=== PATIENT | female | born 1970 | race Caucasian/White ===

== ENCOUNTER 2017-03-15 04:33 | Emergency (ER) | payer MEDICAID, OTHER ==
[2017-03-15 04:41] VITALS: RESP 16; TEMP 99
[2017-03-15] MEDS ORDERED: ONDANSETRON 4 MG/2 ML VIAL IVP ONE (05:04)
[2017-03-15] MEDS ORDERED: NS 1,000 ML IV ONE ×2 (05:04)
[2017-03-15 05:25] LABS: % IMMATURE GRANULYOCYTES 0.2 % (0.0-1.1); ABSOLUTE IMMATURE GRANULOCYTES 0.01 10^3/uL (0.00-0.10); ADD DIFF? NO; ADD MORPH? NO; ADD SCAN? NO; ATYPICAL LYMPHOCYTE FLAG 0 (0-99); FRAGMENT RBC FLAG 20 (0-99); HEMATOCRIT 33.3 % (38.0-47.0); HEMOGLOBIN 10.2 g/dL (12.6-16.3); LEFT SHIFT FLG 0 (0-99); LIPEMIA HEMOLYSIS FLAG 80 (0-99); MEAN CELL HEMOGLOBIN 23.9 pg (27.9-34.1); MEAN CELL HEMOGLOBIN CONCENTR. 30.6 g/dL (32.4-36.7); MEAN CELL VOLUME 78.2 fL (81.5-99.8); MEAN PLATELET VOLUME 9.8 fL (8.7-11.7); PLATELET CLUMPS FLAG 0 (0-99); PLATELET COUNT 250 10^3/uL (150-400); RED BLOOD CELL COUNT 4.26 10^6/uL (4.18-5.33); RED CELL DISTRIBUTION WIDTH 15.9 % (11.5-15.2)
[2017-03-15 05:35] LABS: ANION GAP 8 mEq/L (8-16); CALCIUM 9.1 mg/dL (8.5-10.4); CARBON DIOXIDE 26 mEq/l (22-31); CHLORIDE 109 mEq/L (97-110); CREATININE 1.1 mg/dL (0.6-1.0); GLOMERULAR FILTRATION RATE 53; GLUCOSE 89 mg/dL (70-100); POTASSIUM 3.9 mEq/L (3.5-5.2); SODIUM 143 mEq/L (134-144)
--- NOTE | 2017-03-15 05:59 | EDPHY ---
H & P Stated Complaint: UTI symptoms; recent UA done, awaiting culture, took levaquin Time Seen by Provider: 03/15/17 04:45 HPI/ROS: HPI The patient presents with symptoms of urinary tract infection which began about 1 week ago. She did receive a steroid infusion as part of a study drug treatment she is receiving for amyloidosis. She has been experiencing nausea, dry heaves, a pressure like sensation in her lower abdomen and has had some mild diarrhea. She was seen by her doctor yesterday at [facility] and had a UA suggestive of urinary tract infection so she has taken 1 dose of Levaquin. Urine culture was sent, however results have not returned yet. She has a neurogenic bladder and has to straight cath and has been doing this recently. She has a history of ESBL UTIs.. REVIEW OF SYSTEMS Constitutional: No fever, no chills. Eyes: No discharge. ENT: No sore throat. Cardiovascular: No chest pain, no palpitations. Respiratory: No cough, no shortness of breath. Gastrointestinal: Positive for abdominal pain, no vomiting. Genitourinary: No hematuria. Musculoskeletal: No back pain. Skin: No rashes. Neurological: No headache. PMHx: Amyloidosis, neurogenic bladder, pots, Sjogren's syndrome Soc Hx: Housed PHYSICAL General Appearance: Alert, no distress Eyes: Pupils equal and round no pallor or injection ENT, Mouth: Mucous membranes dry Respiratory: There are no retractions, lungs are clear to auscultation Cardiovascular: Regular rate and rhythm Gastrointestinal: Abdomen is soft and non-tender, no masses, bowel sounds normal, no CVA tenderness, feeding tube in place Neurological: A&O, moves all extremities Skin: Warm and dry, no rashes Musculoskeletal: Neck is supple non tender Extremities: symmetrical, full range of motion Psychiatric: Patient is oriented X 3, there is no agitation Source: Patient Exam Limitations: No limitations - Personal History LMP (Females 10-55): 1-7 Days Ago Current Tetanus/Diphtheria Vaccine: Yes - Medical/Surgical History Hx Asthma: No Hx Chronic Respiratory Disease: No Hx Diabetes: No Hx Cardiac Disease: No Hx Renal Disease: No Hx Cirrhosis: No Hx Alcoholism: No Hx HIV/AIDS: No Hx Splenectomy or Spleen Trauma: No Other PMH: PMHx: Neurogenic bladder, Sjogran's disease, autonomic neuropathy, POTS. PSHx: eye surgeries, feeding tube, hernia repair x 2 - Social History Smoking Status: Never smoked Constitutional: Initial Vital Signs Temperature (C) 37.2 C 03/15/17 04:37 Heart Rate 78 03/15/17 04:37 Respiratory Rate 16 03/15/17 04:37 Blood Pressure 112/84 H 03/15/17 04:37 O2 Sat (%) 99 03/15/17 04:37 O2 Delivery Mode Room Air Allergies/Adverse Reactions: No Known Allergies Allergy (Verified 08/25/14 14:25) Home Medications: Medication Instructions Recorded Benzonatate [Tessalon Pearles] 200 mg PO TID PRN 06/14/14 Cevimeline HCl [Evoxac] 30 mg PO TID 06/14/14 Cholecalciferol (Vitamin D3) 5,000 unit PO DAILY 06/14/14 [Vitamin D3] Dextran 70/Hypromellose [Tears 1 - 2 drops OP PRN PRN 06/14/14 Naturale-II Eye Drops] Herbals/Supplements -Info Only 1 ea PO DAILY 06/14/14 Hydroxychloroquine Sulfate 200 mg PO DAILY 06/14/14 [Plaquenil 200 mg (*)] [place]-3 Fatty Acids [Fish Oil 1000 1,000 mg PO DAILY 06/14/14 mg (*)] Pantoprazole Sodium [Protonix 40mg 40 mg PO DAILY 06/14/14 (*)] Solifenacin Succinate [Vesicare] 10 mg PO DAILY 06/14/14 Acetaminophen [Tylenol 325mg (*)] 650 mg PO Q4 PRN #0 tab 06/16/14 Ertapenem [INVanz] 1 gm IV DAILY #0 vial 06/16/14 Ferrous Sulfate [Iron] 325 mg PO DAILY #0 capsule.sa 06/16/14 Ondansetron Odt [Zofran Odt 4 mg 4 mg PO Q4 PRN #20 tab 06/16/14 (*)] Ondansetron Odt [Zofran Odt] 4 mg PO Q4PRN PRN #10 tab 08/25/14 Medical Decision Making Differential Diagnosis: This is a 46-year-old female with complex past medical history including amyloidosis with neurogenic bladder, requiring straight catheterization, and frequent urinary tract infections with history of ESBL. She presents today with symptoms of a urinary tract infection which have been associated with nausea and lack of appetite. She has already been seen by her doctor at [facility] and has initiated antibiotic treatment. Differential diagnosis includes cystitis, pyelonephritis, dehydration, renal failure. In the emergency department, IV line was established and the patient was given 2 L of IV fluid for presumed hypovolemia due to her nausea and anorexia. Labs were checked and were relatively unremarkable. We did not check UA or culture today given that these were just done yesterday and patient has results with her. - Data Points Laboratory Results: Laboratory Results 03/15/17 05:17 03/15/17 05:17 03/15/17 03/15/17 05: 05:17 WBC 5.40 10^3/uL 10^3/uL (3.80-9.50) RBC 4.26 10^6/uL 10^6/uL (4.18-5.33) Hgb 10.2 g/dL L g/dL (12.6-16.3) Hct 33.3 % L % (38.0-47.0) MCV 78.2 fL L fL (81.5-99.8) MCH 23.9 pg L pg (27.9-34.1) MCHC 30.6 g/dL L g/dL (32.4-36.7) RDW 15.9 % H % (11.5-15.2) Plt Count 250 10^3/uL 10^3/uL (150-400) MPV 9.8 fL fL (8.7-11.7) Neut % (Auto) 58.8 % % (39.3-74.2) Lymph % (Auto) 30.0 % % (15.0-45.0) [place] % (Auto) 8.7 % % (4.5-13.0) Eos % (Auto) 1.7 % % (0.6-7.6) Baso % (Auto) 0.6 % % (0.3-1.7) Nucleat RBC Rel Count 0.0 % % (0.0-0.2) Absolute Neuts (auto) 3.18 10^3/uL 10^3/uL (1.70-6.50) Absolute Lymphs (auto) 1.62 10^3/uL 10^3/uL (1.00-3.00) Absolute Monos (auto) 0.47 10^3/uL 10^3/uL (0.30-0.80) Absolute Eos (auto) 0.09 10^3/uL 10^3/uL (0.03-0.40) Absolute Basos (auto) 0.03 10^3/uL 10^3/uL (0.02-0.10) Absolute Nucleated RBC 0.00 10^3/uL 10^3/uL (0-0.01) Immature Gran % 0.2 % % (0.0-1.1) Immature Gran # 0.01 10^3/uL 10^3/uL (0.00-0.10) Sodium 143 mEq/L mEq/L (134-144) Potassium 3.9 mEq/L mEq/L (3.5-5.2) Chloride 109 mEq/L mEq/L (97-110) Carbon Dioxide 26 mEq/l mEq/l (22-31) Anion Gap 8 mEq/L mEq/L (8-16) BUN 25 mg/dL H mg/dL (7-23) Creatinine 1.1 mg/dL H mg/dL (0.6-1.0) Estimated GFR 53 Glucose 89 mg/dL mg/dL (70-100) Calcium 9.1 mg/dL mg/dL (8.5-10.4) Medications Given: Discontinued Medications Sodium Chloride (Ns) 1,000 mls @ 0 mls/hr IV ONCE ONE; Wide Open PRN Reason: Protocol Stop: 03/15/17 05:05 Last Admin: 03/15/17 05:33 Dose: 1,000 mls Sodium Chloride (Ns) 1,000 mls @ 0 mls/hr IV ONCE ONE; Wide Open PRN Reason: Protocol Stop: 03/15/17 05:05 Last Admin: 03/15/17 06:05 Dose: 1,000 mls Ondansetron HCl (Zofran) 4 mg IVP EDNOW ONE Stop: 03/15/17 05:05 Last Admin: 03/15/17 05:33 Dose: 4 mg Departure - Departure Disposition: Home, Routine, Self-Care Clinical Impression: UTI (lower urinary tract infection), Dehydration Condition: Good Instructions: Urinary Tract Infection in Women (ED) Additional Instructions: Please return to the emergency room if your worse in any way. Otherwise you should follow up with your regular treating doctor. Referrals: Ariana Junior MD [Primary Care Provider] - As per Instructions
[2017-03-15 07:00] VITALS: BP 108/78; PULSE 68; O2SAT 96
== END 2017-03-15 07:09 | disposition home or self-care (01) ==
DX: N39.0 Urinary tract infection, site not specified (principal); E86.0 Dehydration
CPT/HCPCS: 96374; J2405

== ENCOUNTER 2017-05-20 21:07 | Emergency (ER) | payer MEDICAID ==
--- NOTE | 2017-05-20 21:40 | EDPHY ---
General - History Smoking Status: Never smoked Narrative: CHIEF COMPLAINT: Suicidal ideation, depression HISTORY OF PRESENT ILLNESS: Patient presents with reports of suicidal ideation that started Sunday. Her close friend, Nawaf Nuñez, is with her. The friend reports that the patient has been suicidal since Sunday. The patient agrees to this. She says she has had increasing thoughts of self-harm on Sunday. She cannot control them. She does not have a specific plan. She is not have any intent but is concerned as the thoughts have been increasingly worsened her. She has extensive medical history and comorbidities, most importantly to her is amyloidosis with secondary complications of this. She has been on a study drug , Patisiran, for many months. The reports that this may be causing her symptoms. She has had extensive stress in her life from the medical problems and outside of her medical problems as well. The friend with her reports that she is concerned about her well-being. She brought her here on her own free will. No other associated complaints. No modifying factors for this. She denies any attempted self-harm. She denies previous attempt or diagnosis of depression. PSYCHIATRIC DIAGNOSES: None PRIOR PSYCHIATRIC EVALUATIONS: None M1/DETAINER: Dr. Suresh, 05/20/17 at 21:30 REVIEW OF SYSTEMS: Ten systems reviewed and are negative unless otherwise noted in the HPI EXAMINATION General Appearance: Alert, no distress, tearful Head: normocephalic, atraumatic Eyes: Pupils equal and round, no conjunctival pallor or injection ENT, Mouth: Mucous membranes moist Neck: Normal inspection, supple, non-tender Respiratory: Lungs are clear to auscultation. No wheeze, rhonchi or crackles Cardiovascular: Regular rate and rhythm. No murmur Gastrointestinal: Abdomen is soft and nontender Back: non-tender, no bony abnormalities Neurological: A&O, nonfocal Skin: Warm and dry, no rash Extremities: Nontender, no pedal edema Psychiatric: Depressed mood. Tearful. Admits suicidal ideation. Denies a specific plan. Denies intent. No previous suicide attempt. No access to weapons. No substance abuse. DIFFERENTIAL DIAGNOSES: Including but not limited to suicidal ideation, depression, stress reaction, MDM: 9:40 p.m. Suicidal ideation without any specific plan or intent. Patient does have multiple medical comorbidities and multiple social stressors. Her friend is bedside with her. She is tearful but consolable. I have placed her on an M1 hold. She is aware of this. She agrees to proceed with medical clearance and mental health evaluation. 11:20 p.m. Laboratory studies are all negative. She is cleared for evaluation. I re- evaluated the patient. She is in no acute distress. I informed her that the laboratory studies are negative that she has been cleared for mental evaluation. 12:30 a.m. Mental health evaluation process. 12:[address] At this time Dr. Barragan will assume care the patient. Please see his note for final disposition. This is pending mental health evaluation and disposition recommendation. She remains, cooperative. No acute distress. (Braydon De La Torre) Medical Decision MakinAM: This patient contracts for safety. Has had a mental health evaluation. Does not want hurt herself or anybody else. She would like to go home. She has follow-up care in place. She does understand return emergency room if she has any further worsening symptoms or thoughts of harm herself arm wanting to harm herself or anybody else. She understands. (Steven Barragan) - Objective Vital Signs: Initial Vital Signs Temperature (C) 36.5 C 05/20/17 21:13 Heart Rate 96 05/20/17 21:13 Respiratory Rate 18 05/20/17 21:13 Blood Pressure 157/110 H 05/20/17 21:13 O2 Sat (%) 100 05/20/17 21:13 O2 Delivery Mode Room Air Allergies/Adverse Reactions: No Known Allergies Allergy (Verified 08/25/14 14:25) Home Medications: Medication Instructions Recorded Benzonatate [Tessalon Pearles] 200 mg PO TID PRN 06/14/14 Cevimeline HCl [Evoxac] 30 mg PO TID 06/14/14 Cholecalciferol (Vitamin D3) 5,000 unit PO DAILY 06/14/14 [Vitamin D3] Dextran 70/Hypromellose [Tears 1 - 2 drops OP PRN PRN 06/14/14 Naturale-II Eye Drops] Herbals/Supplements -Info Only 1 ea PO DAILY 06/14/14 Hydroxychloroquine Sulfate 200 mg PO DAILY 06/14/14 [Plaquenil 200 mg (*)] [place]-3 Fatty Acids [Fish Oil 1000 1,000 mg PO DAILY 06/14/14 mg (*)] Pantoprazole Sodium [Protonix 40mg 40 mg PO DAILY 06/14/14 (*)] Solifenacin Succinate [Vesicare] 10 mg PO DAILY 06/14/14 Acetaminophen [Tylenol 325mg (*)] 650 mg PO Q4 PRN #0 tab 06/16/14 Ertapenem [INVanz] 1 gm IV DAILY #0 vial 06/16/14 Ferrous Sulfate [Iron] 325 mg PO DAILY #0 capsule.sa 06/16/14 Ondansetron Odt [Zofran Odt 4 mg 4 mg PO Q4 PRN #20 tab 06/16/14 (*)] Ondansetron Odt [Zofran Odt] 4 mg PO Q4PRN PRN #10 tab 08/25/14 Laboratory Results: Laboratory Results 05/20/17 21:50 05/20/17 21:50 05/20/17 05/20/17 05/20/17 21:50 21:50 21:50 WBC 5.60 10^3/uL 10^3/uL (3.80-9.50) RBC 4.61 10^6/uL 10^6/uL (4.18-5.33) Hgb 11.2 g/dL L g/dL (12.6-16.3) Hct 36.6 % L % (38.0-47.0) MCV 79.4 fL L fL (81.5-99.8) MCH 24.3 pg L pg (27.9-34.1) MCHC 30.6 g/dL L g/dL (32.4-36.7) RDW 15.4 % H % (11.5-15.2) Plt Count 243 10^3/uL 10^3/uL (150-400) MPV 10.2 fL fL (8.7-11.7) Neut % (Auto) 56.1 % % (39.3-74.2) Lymph % (Auto) 32.1 % % (15.0-45.0) [place] % (Auto) 8.6 % % (4.5-13.0) Eos % (Auto) 2.3 % % (0.6-7.6) Baso % (Auto) 0.7 % % (0.3-1.7) Nucleat RBC Rel Count 0.0 % % (0.0-0.2) Absolute Neuts (auto) 3.14 10^3/uL 10^3/uL (1.70-6.50) Absolute Lymphs (auto) 1.80 10^3/uL 10^3/uL (1.00-3.00) Absolute Monos (auto) 0.48 10^3/uL 10^3/uL (0.30-0.80) Absolute Eos (auto) 0.13 10^3/uL 10^3/uL (0.03-0.40) Absolute Basos (auto) 0.04 10^3/uL 10^3/uL (0.02-0.10) Absolute Nucleated RBC 0.00 10^3/uL 10^3/uL (0-0.01) Immature Gran % 0.2 % % (0.0-1.1) Immature Gran # 0.01 10^3/uL 10^3/uL (0.00-0.10) Sodium 139 mEq/L mEq/L (134-144) Potassium 3.9 mEq/L mEq/L (3.5-5.2) Chloride 105 mEq/L mEq/L (97-110) Carbon Dioxide 23 mEq/l mEq/l (22-31) Anion Gap 11 mEq/L mEq/L (8-16) BUN 25 mg/dL H mg/dL (7-23) Creatinine 1.0 mg/dL mg/dL (0.6-1.0) Estimated GFR 59 Glucose 120 mg/dL H mg/dL (70-100) Calcium 9.7 mg/dL mg/dL (8.5-10.4) TSH 1.640 uIU/mL uIU/mL (0.465-4.680) Beta HCG, Qual NEGATIVE Salicylates < 1.0 mg/dL L mg/dL (2.0-20.0) Urine Opiates Screen Acetaminophen < 10 mcg/mL L mcg/mL (10-30) Urine Barbiturates Ur Phencyclidine Scrn Ur Amphetamine Screen U Benzodiazepines Scrn Urine Cocaine Screen U Marijuana (THC) Screen Ethyl Alcohol < 10 mg/dL mg/dL (0-10) 05/20/17 20:49 WBC RBC Hgb Hct MCV MCH MCHC RDW Plt Count MPV Neut % (Auto) Lymph % (Auto) [place] % (Auto) Eos % (Auto) Baso % (Auto) Nucleat RBC Rel Count Absolute Neuts (auto) Absolute Lymphs (auto) Absolute Monos (auto) Absolute Eos (auto) Absolute Basos (auto) Absolute Nucleated RBC Immature Gran % Immature Gran # Sodium Potassium Chloride Carbon Dioxide Anion Gap BUN Creatinine Estimated GFR Glucose Calcium TSH Beta HCG, Qual Salicylates Urine Opiates Screen NEGATIVE (NEGATIVE) Acetaminophen Urine Barbiturates NEGATIVE (NEGATIVE) Ur Phencyclidine Scrn NEGATIVE (NEGATIVE) Ur Amphetamine Screen NEGATIVE (NEGATIVE) U Benzodiazepines Scrn NON-NEGATIVE H (NEGATIVE) Urine Cocaine Screen NEGATIVE (NEGATIVE) U Marijuana (THC) Screen NEGATIVE (NEGATIVE) Ethyl Alcohol Departure - Departure Disposition: Home, Routine, Self-Care Clinical Impression: Suicidal ideation Depression Qualifiers: Depression Type: major depressive disorder Major depression recurrence: single episode Active/Remission status: currently active Major depression episode severity: mild Qualified Code(s): F32.0 - Major depressive disorder, single episode, mild Condition: Fair Instructions: Depression (ED) Additional Instructions: 1.Return to the emergency room if you have change in how you feel. Specifically return emergency room immediately if her suicidal want to harm herself or anybody else. Or you are feeling very depressed. Referrals: Ariana Junior MD [Primary Care Provider] - As per Instructions
[2017-05-20 21:57] LABS: % IMMATURE GRANULYOCYTES 0.2 % (0.0-1.1); ABSOLUTE IMMATURE GRANULOCYTES 0.01 10^3/uL (0.00-0.10); ADD DIFF? NO; ADD MORPH? NO; ADD SCAN? NO; ATYPICAL LYMPHOCYTE FLAG 10 (0-99); FRAGMENT RBC FLAG 0 (0-99); HEMATOCRIT 36.6 % (38.0-47.0); HEMOGLOBIN 11.2 g/dL (12.6-16.3); LEFT SHIFT FLG 0 (0-99); LIPEMIA HEMOLYSIS FLAG 80 (0-99); MEAN CELL HEMOGLOBIN 24.3 pg (27.9-34.1); MEAN CELL HEMOGLOBIN CONCENTR. 30.6 g/dL (32.4-36.7); MEAN CELL VOLUME 79.4 fL (81.5-99.8); MEAN PLATELET VOLUME 10.2 fL (8.7-11.7); PLATELET CLUMPS FLAG 0 (0-99); PLATELET COUNT 243 10^3/uL (150-400); RED BLOOD CELL COUNT 4.61 10^6/uL (4.18-5.33); RED CELL DISTRIBUTION WIDTH 15.4 % (11.5-15.2)
[2017-05-20 22:31] LABS: ANION GAP 11 mEq/L (8-16); CALCIUM 9.7 mg/dL (8.5-10.4); CARBON DIOXIDE 23 mEq/l (22-31); CHLORIDE 105 mEq/L (97-110); ETHANOL SERUM < 10 mg/dL (0-10); GLOMERULAR FILTRATION RATE 59; GLUCOSE 120 mg/dL (70-100); POTASSIUM 3.9 mEq/L (3.5-5.2); SALICYLATE < 1.0 mg/dL (2.0-20.0); SODIUM 139 mEq/L (134-144)
[2017-05-21 00:41] VITALS: TEMP 98.6; O2SAT 97
[2017-05-21 01:53] VITALS: BP 141/94; PULSE 91; RESP 18
== END 2017-05-21 01:51 | disposition home or self-care (01) ==
DX: R45.851 Suicidal ideations (principal); F32.0 Major depressive disorder, single episode, mild
CPT/HCPCS: 80305; G0480

== ENCOUNTER 2018-07-30 22:33 | Emergency (ER) | payer OTHER ==
--- NOTE | 2018-07-30 23:06 | EDPHY ---
H & P Stated Complaint: left toe pain Time Seen by Provider: 07/30/18 22:43 HPI/ROS: HPI The patient presents with left pinky toe redness which she noticed tonight. The patient has a history of peripheral neuropathy due to amyloidosis, she does not have much sensation in her feet bilaterally. Her son noticed tonight that her toe appeared red. She does not recall any trauma to her toe. She has a history of left pinky toe cellulitis of some sort about 2 months ago with lymphangitis streaking which was treated with Keflex. REVIEW OF SYSTEMS 10 systems were reviewed and negative with the exception of the elements mentioned in the history of present illness. PMHx: Amyloidosis, history of Sjogren's syndrome Soc Hx: Visiting from [place], here with her daughter PHYSICAL General Appearance: Alert, no distress Respiratory: Breathing comfortably Neurological: A&O, full range of motion of her toes bilaterally, sensation diminished to light touch throughout her toes Skin: Warm and dry, no rashes Musculoskeletal: Neck is supple non tender Extremities: Left pinky toe is erythematous and slightly edematous, the medial cuticle is torn with dried blood Psychiatric: Patient is oriented X 3, there is no agitation Source: Patient Exam Limitations: No limitations - Personal History LMP (Females 10-55): 1-7 Days Ago Current Tetanus/Diphtheria Vaccine: Yes Current Tetanus Diphtheria and Acellular Pertussis (TDAP): Yes - Medical/Surgical History Hx Asthma: No Hx Chronic Respiratory Disease: No Hx Diabetes: No Hx Cardiac Disease: No Hx Renal Disease: No Hx Cirrhosis: No Hx Alcoholism: No Hx HIV/AIDS: No Hx Splenectomy or Spleen Trauma: No Other PMH: PMHx: Neurogenic bladder, Sjogran's disease, autonomic neuropathy, POTS. PSHx: eye surgeries, feeding tube, hernia repair x 2 - Social History Smoking Status: Never smoked Constitutional: Initial Vital Signs Temperature (C) 36.7 C 07/30/18 22:35 Heart Rate 85 07/30/18 22:35 Respiratory Rate 16 07/30/18 22:35 Blood Pressure 101/74 07/30/18 22:35 O2 Sat (%) 98 07/30/18 22:35 O2 Delivery Mode Room Air Allergies/Adverse Reactions: Sulfa (Sulfonamide Antibiotics) Allergy (Verified 07/30/18 22:40) sulfamethoxazole [From Bactrim] Allergy (Verified 12/18/18 22:40) trimethoprim [From Bactrim] Allergy (Verified 07/30/18 22:40) Home Medications: Medication Instructions Recorded Cevimeline HCl [Evoxac] 30 mg PO TID 06/14/14 Dextran 70/Hypromellose [Tears 1 - 2 drops OP PRN PRN 06/14/14 Naturale-II Eye Drops] Solifenacin Succinate [Vesicare] 10 mg PO DAILY 06/14/14 Cephalexin [Keflex (*)] 500 mg PO Q6H #28 cap 07/30/18 Hiprex 1 gm (*) 07/30/18 Midodrine HCl 07/30/18 hydrALAZINE 07/30/18 Medical Decision Making - Diagnostics Imaging Results: Imaging Impressions Toe X-Ray 07/30/18 22:52 Impression: 1. Soft tissue swelling left fifth toe with questionable erosion along the dorsal lateral margin of the PIP joint. If there is a high clinical suspicion for osteomyelitis then consider MRI without and with contrast left foot as clinically directed. Imaging: I viewed and interpreted images myself Differential Diagnosis: 47-year-old female with multiple medical problems including amyloidosis resulting in peripheral neuropathy presents with left toe redness for the last 1 day. She does have an injury to her cuticle which could be a nidus for infection. She also could have suffered from an injury that she was not aware of because of her neuropathy. Plan for plain films of her toe. Plain films show no fracture though raise suspicion for osteomyelitis. Given that the patient's symptoms have just been present for the last 1 day, I think osteomyelitis is less likely then cellulitis. She did have some sort of infection of the toe 2 months ago which resolved quickly with Keflex. And given her history of neuropathy, she is at risk. I plan to start her on Keflex. I have explained to her if she does not improve quickly, she will need follow-up with her primary care doctor for an MRI to further evaluate for osteomyelitis. She is able to follow through with this plan. - Data Points Medications Given: Discontinued Medications Cephalexin (Keflex 500 Mg Prepack#4) 1 btl TAKEHOME EDNOW ONE PRN Reason: Protocol Stop: 07/30/18 23:33 Last Admin: 07/30/18 23:46 Dose: 1 btl Cephalexin HCl (Keflex) 500 mg PO EDNOW ONE PRN Reason: Protocol Stop: 07/30/18 23:33 Last Admin: 07/30/18 23:46 Dose: 500 mg Departure - Departure Disposition: Home, Routine, Self-Care Clinical Impression: Toe erythema, Ragged cuticle Condition: Good Instructions: Cellulitis (ED) Additional Instructions: Please take the full course of antibiotics. You should use an antibiotic ointment on her toe. I would like for you to follow up with your primary care doctor when you return home to see if you need to have an MRI. Referrals: Ariana Junior MD [Primary Care Provider] - As per Instructions Prescriptions: Cephalexin [Keflex (*)] 500 mg PO Q6H #28 cap
[2018-07-30] MEDS ORDERED: CEPHALEXIN 500MG PREPACK#4 BTL TAKEHOME ONE (23:32)
[2018-07-30] MEDS ORDERED: CEPHALEXIN 500 MG CAP PO ONE (23:32)
[2018-07-30 23:50] VITALS: BP 105/67
== END 2018-07-30 23:50 | disposition home or self-care (01) ==
DX: L03.032 Cellulitis of left toe (principal); L60.8 Other nail disorders; G62.9 Polyneuropathy, unspecified; N31.9 Neuromuscular dysfunction of bladder, unspecified; M35.00 Sjogren syndrome, unspecified; Z93.4 Other artificial openings of gastrointestinal tract status; Z88.2 Allergy status to sulfonamides

== ENCOUNTER 2018-08-06 12:39 | Emergency (ER) | payer OTHER ==
--- NOTE | 2018-08-06 12:56 | EDPHY ---
H & P Stated Complaint: Nosebleed Time Seen by Provider: 08/06/18 12:55 HPI/ROS: CHIEF COMPLAINT: Epistaxis HISTORY OF PRESENT ILLNESS: The patient presents to the ED with epistaxis that began earlier today. She has a history of a perforated septum. She is not on anticoagulants. She denies any history of trauma. The patient denies associated lightheadedness. REVIEW OF SYSTEMS: A comprehensive 10 point review of systems is otherwise negative aside from elements mentioned in the history of present illness. Source: Patient Exam Limitations: No limitations - Personal History LMP (Females 10-55): 1-7 Days Ago Current Tetanus/Diphtheria Vaccine: Yes - Medical/Surgical History Hx Asthma: No Hx Chronic Respiratory Disease: No Hx Diabetes: No Hx Cardiac Disease: No Hx Renal Disease: No Hx Cirrhosis: No Hx Alcoholism: No Hx HIV/AIDS: No Hx Splenectomy or Spleen Trauma: No Other PMH: PMHx: Neurogenic bladder, Sjogran's disease, autonomic neuropathy, POTS. PSHx: eye surgeries, feeding tube, hernia repair x 2 - Social History Smoking Status: Never smoked - Physical Exam Exam: General Appearance: Alert, no distress Eyes: Pupils equal and round no pallor or injection ENT, Mouth: Bilateral anterior epistaxis noted, perforated septum noted which is a chronic condition Respiratory: There are no retractions, lungs are clear to auscultation Cardiovascular: Regular rate and rhythm Gastrointestinal: Abdomen is soft and nontender, no masses, bowel sounds normal Neurological: 5 out of 5 strength noted all 4 extremities Constitutional: Initial Vital Signs Heart Rate 89 08/06/18 12:44 Respiratory Rate 16 08/06/18 12:44 Blood Pressure 119/78 08/06/18 12:44 O2 Sat (%) 94 08/06/18 12:44 O2 Delivery Mode Room Air Allergies/Adverse Reactions: Sulfa (Sulfonamide Antibiotics) Allergy (Verified 08/06/18 12:47) sulfamethoxazole [From Bactrim] Allergy (Verified 08/06/18 12:47) trimethoprim [From Bactrim] Allergy (Verified 08/06/18 12:47) Home Medications: Medication Instructions Recorded Cevimeline HCl [Evoxac] 30 mg PO TID 06/14/14 Dextran 70/Hypromellose [Tears 1 - 2 drops OP PRN PRN 06/14/14 Naturale-II Eye Drops] Solifenacin Succinate [Vesicare] 10 mg PO DAILY 06/14/14 Cephalexin [Keflex (*)] 500 mg PO Q6H #28 cap 07/30/18 Hiprex 1 gm (*) 07/30/18 Midodrine HCl 07/30/18 hydrALAZINE 07/30/18 Medical Decision Making Procedures: Procedure: Epistaxis control. Indication: nosebleed not controlled by direct pressure. Risks, benefits, alternatives discussed with patient and consent obtained. The bilateral nares were anesthetized with [place] nasal solution. The anterior epistaxis was identified. The patient was treated with vaso constriction and silver nitrate cautery. Following the procedure the patient was re-examined and the bleeding was well controlled. The patient tolerated the procedure well. The procedure was performed by myself. ED Course/Re-evaluation: The patient presents to the emergency department with complaints of epistaxis which began earlier today. The patient has a history of a perforated septum which has not been surgically repaired. The patient denies any acute complaints. She is not anticoagulated. The patient underwent silver nitrate cautery by myself. She appeared to be bleeding in the area of her perforated septum. I removed the nasal clip following cautery at 2:00 p.m.. - Data Points Medications Given: Discontinued Medications Cocaine HCl (Cocaine Hcl) 1 marycruz TP EDNOW ONE Stop: 08/06/18 12:59 Last Admin: 08/06/18 13:03 Dose: 1 marycruz Oxymetazoline HCl (Afrin Nasal [place]) 2 sprays EACHNARE EDNOW ONE Stop: 08/06/18 12:59 Last Admin: 08/06/18 13:04 Dose: 2 marycruz Silver Nitrate/Potassium Nitrate (Silver Nitrate Applicator) 4 each TP EDNOW ONE Stop: 08/06/18 12:59 Last Admin: 08/06/18 13:03 Dose: 4 each Departure - Departure Disposition: Home, Routine, Self-Care Clinical Impression: Anterior epistaxis, Perforated nasal septum Condition: Good Instructions: Nosebleed (ED) Additional Instructions: 1. Please return to the ED for heavy bleeding not resolved with direct pressure. 2. Please follow up with our on-call Ear Nose Throat physician for any recurrent intermittent bleeding or should you desire a 2nd opinion regarding repair of your perforated septum Referrals: Paul Rosado MD [Medical Doctor] - As per Instructions
[2018-08-06] MEDS ORDERED: SILVER NITRATE APPLICATOR 1 APPL TP ONE (12:58)
[2018-08-06] MEDS ORDERED: COCAINE HCL 4% 4 ML BTL TP ONE (12:58)
[2018-08-06] MEDS ORDERED: OXYMETAZOLINE 30 ML NASAL SPRAY EACHNARE ONE (12:58)
[2018-08-06] MEDS ORDERED: ONDANSETRON DISINTEGRATING 4 MG TAB ONE (13:39)
[2018-08-06 14:42] VITALS: BP 118/80
== END 2018-08-06 14:42 | disposition home or self-care (01) ==
PROC: 3E09XTZ Introduction of Destructive Agent into Nose, External Approach (ICD-10-PCS; principal; 2018-08-06)
DX: R04.0 Epistaxis (principal); J34.89 Other specified disorders of nose and nasal sinuses